=== PATIENT | male | born 1950 | race Caucasian/White ===

== ENCOUNTER → 2017-10-21 | Outpatient (CLI) | payer MEDICARE ==
[~2017-10-21] MED LIST: BARIUM SULFATE 60% 355 ML SUSP PO ONE; SIMETHICONE/SOD BICARB/CITRIC ACID PACKET. PO ONE
--- NOTE | 2017-10-21 10:50 | RAD ---
Esophagram Indication: Nausea and vomiting Technique: Fluoroscopy-guided Esophagram and upper GI study was performed with thin and thick barium. Multiple fluoroscopy and spot images were taken in multiple projections. Total fluoroscopy time of 5.4 minutes. Comparison: None Findings: The esophagram demonstrated no evidence of aspiration. Small amount of post swallow residual seen in the vallecula. No evidence of esophageal diverticulum. No obstructing mass or stricture in the esophagus. No hiatal hernia. The stomach demonstrates no intraluminal filling defects. No large ulcers visualized. Prompt opacification of the duodenum and proximal bowel loops was seen. No sec. gastric rugae. No significant evidence of gastroesophageal reflux. Impression: 1. No aspiration. 2. No esophageal diverticulum, esophageal mass or stricture. 3. No evidence of gastric outlet obstruction. No intraluminal gastric mass or large ulcers. Consider EGD for further evaluation if clinically indicated.
== END | disposition home or self-care (01) ==
LOC: RAD 08:56
PROVIDERS: ATTEND Internal Medicine Gastroenterology
DX: R11.2 Nausea with vomiting, unspecified (principal)
CPT/HCPCS: 74246

== ENCOUNTER 2017-12-21 13:11 | Emergency (ER) | payer MEDICARE, OTHER ==
[2017-12-21] MEDS ORDERED: CONTRAST GIVEN MC ×2 (14:15)
[2017-12-21] MEDS ORDERED: IOHEXOL 240 MG/ML 50ML VIAL. IT ×2 (14:15)
== END 2017-12-21 15:53 | disposition home or self-care (01) ==
LOC: ER 13:11
DX: K94.23 Gastrostomy malfunction (principal); Y83.3 Surgical operation with formation of external stoma as the cause of abnormal reaction of the patient, or of later complication, without mention of misadventure at the time of the procedure
CPT/HCPCS: 71045; 74018; 99284

== ENCOUNTER 2017-12-24 23:40 | Emergency (ER) | payer MEDICARE, OTHER, MEDICAID ==
[2017-12-25 00:03] LABS: ADD MAN DIFF? NO
[2017-12-25 00:05] LABS: BASO % 1 % (0-3); EOS % 0 % (0-3); HEMATOCRIT 35.9 % (39.0-53.0); HEMOGLOBIN 12.2 g/dL (13.0-17.5); LYMPH # 1.6 x10^3/uL (1.0-4.8); LYMPH % 26 % (24-48); MEAN CORPUSCULAR HEMOGLOBIN 30 pg (25-35); MEAN CORPUSCULAR HGB CONC 34 g/dL (31-37); MEAN CORPUSCULAR VOLUME 89 fL (79-100); MONO # 0.5 x10^3/uL (0.0-1.1); MONO % 8 % (0-9); NEUT # 4.1 x10^3uL (1.8-7.7); NEUT % 65 % (31-73); PLATELET COUNT 160 x10^3/uL (140-400); RED BLOOD COUNT 4.06 x10^6/uL (4.30-5.70); RED CELL DISTRIBUTION WIDTH 14.8 % (11.5-14.5); WHITE BLOOD COUNT 6.3 x10^3/uL (4.0-11.0)
[2017-12-25] MEDS: IPRATRPIUM/ALBUTEROL 0.5/2.5MG 3 ML NEBU. NEB ×2 (00:06)
[2017-12-25] MEDS: IV NORMAL SALINE 1000ML BAG 1,000 ML IV ×2 (00:09)
[2017-12-25 00:25] LABS: ANION GAP 3 (6-14); BLOOD UREA NITROGEN 25 mg/dL (8-26); BUN/CREATININE RATIO 21 (6-20); CALCIUM 7.9 mg/dL (8.5-10.1); CARBON DIOXIDE 30 mmol/L (21-32); CHLORIDE 95 mmol/L (98-107); CREATININE 1.2 mg/dL (0.7-1.3); GFR 60.8; GLUCOSE 112 mg/dL (70-99); POTASSIUM 4.4 mmol/L (3.5-5.1); SODIUM 128 mmol/L (136-145)
[2017-12-25 00:28] LABS: D-DIMER 0.45 ug/mlFEU (0.00-0.50)
[2017-12-25 00:31] LABS: ALBUMIN/GLOBULIN RATIO 0.5 (1.0-1.7); ALK PHOS 74 U/L (46-116); ALT (SGPT) 27 U/L (16-63); AST (SGOT) 23 U/L (15-37); TOTAL BILIRUBIN 0.6 mg/dL (0.2-1.0); TOTAL PROTEIN 5.9 g/dL (6.4-8.2)
[2017-12-25 00:33] LABS: LACTIC ACID 1.7 mmol/L (0.4-2.0)
[2017-12-25 00:36] LABS: TROPONINI < 0.017 ng/mL (0.000-0.055)
[2017-12-25 00:38] LABS: NT-PRO BNP 278 pg/mL (0-124)
[2017-12-25 00:41] LABS: CREATINE KINASE 72 U/L (39-308)
[2017-12-25 00:42] LABS: CKMB MASS 2.6 ng/mL (0.0-3.6)
[2017-12-25 01:01] LABS: BILIRUBIN,URINE NEGATIVE (NEG); CLARITY,URINE CLEAR; COLOR,URINE YELLOW; GLUCOSE,URINE NEGATIVE (NEG); NITRITE,URINE NEGATIVE (NEG); PH,URINE 7.5; PROTEIN,URINE NEGATIVE (NEG-TRACE)
[2017-12-25 01:43] LABS: BACTERIA,URINE 0 /HPF (0-FEW); SQUAMOUS EPITHELIAL CELL,UR FEW /LPF
== END 2017-12-25 02:34 | disposition home or self-care (01) ==
LOC: ER 23:40
DX: R06.00 Dyspnea, unspecified (principal); E11.9 Type 2 diabetes mellitus without complications; Z86.73 Personal history of transient ischemic attack (TIA), and cerebral infarction without residual deficits; I51.9 Heart disease, unspecified; Z95.1 Presence of aortocoronary bypass graft
CPT/HCPCS: 36415; 51701; 71045; 80053; 81001; 82553; 83605; 83880; 84484; 85025; 85379; 93005; 94640; 96360; 99285-25; J7030; J7620

== ENCOUNTER 2017-12-28 20:41 | Inpatient (IN) | payer MEDICARE, OTHER ==
[2017-12-28 21:35] LABS: ADD MAN DIFF? NO
[2017-12-28 21:39] LABS: BASO % 0 % (0-3); EOS % 0 % (0-3); HEMATOCRIT 38.9 % (39.0-53.0); HEMOGLOBIN 13.1 g/dL (13.0-17.5); LYMPH # 1.4 x10^3/uL (1.0-4.8); LYMPH % 14 % (24-48); MEAN CORPUSCULAR HEMOGLOBIN 30 pg (25-35); MEAN CORPUSCULAR HGB CONC 34 g/dL (31-37); MEAN CORPUSCULAR VOLUME 89 fL (79-100); MONO # 0.6 x10^3/uL (0.0-1.1); MONO % 6 % (0-9); NEUT # 8.1 x10^3uL (1.8-7.7); NEUT % 80 % (31-73); PLATELET COUNT 149 x10^3/uL (140-400); RED BLOOD COUNT 4.38 x10^6/uL (4.30-5.70); RED CELL DISTRIBUTION WIDTH 15.2 % (11.5-14.5); WHITE BLOOD COUNT 10.2 x10^3/uL (4.0-11.0)
[2017-12-28 21:54] LABS: ANION GAP 8 (6-14); BLOOD UREA NITROGEN 25 mg/dL (8-26); BUN/CREATININE RATIO 19 (6-20); CALCIUM 8.4 mg/dL (8.5-10.1); CARBON DIOXIDE 26 mmol/L (21-32); CHLORIDE 92 mmol/L (98-107); CREATININE 1.3 mg/dL (0.7-1.3); GFR 55.4; GLUCOSE 261 mg/dL (70-99); POTASSIUM 4.8 mmol/L (3.5-5.1); SODIUM 126 mmol/L (136-145)
[2017-12-28 22:00] LABS: LACTIC ACID 2.5 mmol/L (0.4-2.0)
[2017-12-28 22:02] LABS: TROPONINI < 0.017 ng/mL (0.000-0.055)
[2017-12-28 22:05] LABS: NT-PRO BNP 1199 pg/mL (0-124)
[2017-12-28 22:07] LABS: ALBUMIN 2.2 g/dL (3.4-5.0); ALBUMIN/GLOBULIN RATIO 0.5 (1.0-1.7); ALK PHOS 105 U/L (46-116); ALT (SGPT) 34 U/L (16-63); AST (SGOT) 35 U/L (15-37); TOTAL BILIRUBIN 0.8 mg/dL (0.2-1.0); TOTAL PROTEIN 6.6 g/dL (6.4-8.2)
[2017-12-28 22:12] LABS: INFLUENZA A PATIENT NEGATIVE (NEGATIVE); INFLUENZA B PATIENT NEGATIVE (NEGATIVE); OBC FLU VALID
[2017-12-28] MEDS: IPRATRPIUM/ALBUTEROL 0.5/2.5MG 3 ML NEBU. NEB (22:22)
[2017-12-28 22:40] LABS: BASE EXCESS ABG 3 mmol/L (-3-3); HCO3 ABG 25 mmol/L (21-28); PCO2 ABG 31 mmHg (35-46); PH ABG 7.52 (7.35-7.45); PO2 ABG 59 mmHg (65-108); SAT O2 ABG 91 % (92-99)
[2017-12-28 22:41] LABS: FIO2 ABG 50
[2017-12-28] MEDS ORDERED: CEFEPIME HCL 2 GM in IV NORMAL SALINE 100ML 100 ML IV (22:45)
[2017-12-28] MEDS ORDERED: ONDANSETRON PF 4 MG/2 ML VIAL. IV (22:45)
[2017-12-28] MEDS ORDERED: IV NORMAL SALINE 500ML BAG 500 ML IV (23:00)
[2017-12-29] MEDS ORDERED: VANCOMYCIN IV
[2017-12-29] MEDS ORDERED: DEXTROSE IV
[2017-12-29] MEDS ORDERED: NACL IV
[2017-12-29] MEDS: CEFEPIME HCL IV Push 2 GM VIAL. IVP (00:28)
[2017-12-29] MEDS: VANCOMYCIN 2 GM in IV DEXTROSE 5 %-0.2 % NACL 500 ML IV (00:29)
[2017-12-29] MEDS: methylPREDNISolone SOD SUCC PF 125 MG/2 ML VIAL. IV (00:30)
[2017-12-29] MEDS: VANCOMYCIN PER PHARMACY MC ×2 (01:43→09:16)
[2017-12-29 02:35] LABS: LACTIC ACID 1.3 mmol/L (0.4-2.0)
[2017-12-29 05:14] LABS: ADD MAN DIFF? NO
[2017-12-29 05:37] LABS: BASO # 0.1 x10^3/uL (0.0-0.2); BASO % 1 % (0-3); EOS % 0 % (0-3); HEMOGLOBIN 11.4 g/dL (13.0-17.5); LYMPH # 1.7 x10^3/uL (1.0-4.8); LYMPH % 23 % (24-48); MEAN CORPUSCULAR HEMOGLOBIN 31 pg (25-35); MEAN CORPUSCULAR HGB CONC 35 g/dL (31-37); MEAN CORPUSCULAR VOLUME 89 fL (79-100); MONO # 0.6 x10^3/uL (0.0-1.1); MONO % 8 % (0-9); NEUT # 5.1 x10^3uL (1.8-7.7); NEUT % 68 % (31-73); PLATELET COUNT 117 x10^3/uL (140-400); RED BLOOD COUNT 3.72 x10^6/uL (4.30-5.70); RED CELL DISTRIBUTION WIDTH 15.3 % (11.5-14.5); WHITE BLOOD COUNT 7.4 x10^3/uL (4.0-11.0)
[2017-12-29 06:01] LABS: ANION GAP 5 (6-14); BLOOD UREA NITROGEN 30 mg/dL (8-26); CALCIUM 8.4 mg/dL (8.5-10.1); CARBON DIOXIDE 27 mmol/L (21-32); CHLORIDE 94 mmol/L (98-107); CREATININE 1.2 mg/dL (0.7-1.3); GFR 60.8; GLUCOSE 244 mg/dL (70-99); POTASSIUM 4.4 mmol/L (3.5-5.1); SODIUM 126 mmol/L (136-145)
[2017-12-29 06:10] LABS: TROPONINI < 0.017 ng/mL (0.000-0.055)
[2017-12-29 08:21] LABS: POC GLUCOSE 271 mg/dL (70-99)
[2017-12-29] MEDS ORDERED: BISACODYL 10 MG SUPP.RECT. RC (09:00)
[2017-12-29] MEDS ORDERED: SODIUM PHOSPHATES 19/7GM 133 ML ENEMA. RC (09:00)
[2017-12-29] MEDS: ASPIRIN ENTERIC COATED 81 MG TABLET.DR. PO (09:23)
[2017-12-29] MEDS: CETIRIZINE HCL 10 MG TABLET. PO (09:23)
[2017-12-29] MEDS: PANTOPRAZOLE 40 MG TABLET.DR. PO (09:23)
[2017-12-29] MEDS: FOLIC ACID 1 MG TABLET. PO (09:23)
[2017-12-29] MEDS: MULTIVITAMIN with MINERAL TABLET. PO (09:23)
[2017-12-29] MEDS: MAGNESIUM OXIDE 400 MG TABLET PO ×3 (09:23→21:39)
[2017-12-29] MEDS: buPROPion SR 100 MG TABLET.SA. PO ×2 (09:23→21:38)
[2017-12-29] MEDS: CLOPIDOGREL BISULFATE 75 MG TABLET PO (09:23)
[2017-12-29] MEDS: CEFEPIME HCL IV Push 1 GM VIAL. IVP ×3 (09:24→21:39)
[2017-12-29] MEDS: IV NORMAL SALINE 1000ML BAG 1,000 ML IV (11:30)
[2017-12-29 11:43] LABS: TROPONINI < 0.017 ng/mL (0.000-0.055)
[2017-12-29] MEDS: LEVOTHYROXINE 175 MCG TABLET PO (11:58)
[2017-12-29] MEDS ORDERED: INSULIN ASPART 300 UNITS/3 ML INSULN.PEN SQ (12:00)
[2017-12-29] MEDS: INSULIN ASPART 300 UNITS/3 ML INSULN.PEN SQ ×3 (12:05→23:53)
[2017-12-29 12:12] LABS: POC GLUCOSE 223 mg/dL (70-99)
[2017-12-29] MEDS: VANCOMYCIN 1.25 GM in IV DEXTROSE 5 %-0.45 % NACL 500 ML IV (12:46)
[2017-12-29 13:57] LABS: URIC ACID 5.1 mg/dL (3.5-7.2)
[2017-12-29 14:09] LABS: THYROID STIM HORMONE (TSH) 5.933 uIU/mL (0.358-3.74)
[2017-12-29 14:09] LABS: FREE T4 1.16 ng/dL (0.76-1.46)
[2017-12-29] MEDS: HEPARIN PF for SUB-Q USE 5,000 UNIT/0.5 ML VIAL. SQ ×2 (14:26→21:41)
[2017-12-29] MEDS: methylPREDNISolone SOD SUCC PF 40 MG/ML VIAL. IV (14:28)
[2017-12-29] MEDS ORDERED: CONTRAST GIVEN MC (15:45)
[2017-12-29] MEDS: IOHEXOL 300 MG/ML 100ML VIAL. IV (15:45)
[2017-12-29] MEDS: ATORVASTATIN CALCIUM 20 MG TABLET PO (21:38)
[2017-12-29] MEDS: LACTOBACILLUS RHAMNOSUS GG 1 CAPSULE. PO (21:40)
[2017-12-29 23:08] LABS: MRSA BY PCR Positive (Negative)
[2017-12-29 23:55] LABS: POC GLUCOSE 158 mg/dL (70-99)
[2017-12-30] MEDS: VANCOMYCIN 1.25 GM in IV DEXTROSE 5 %-0.45 % NACL 500 ML IV ×2 (00:40→12:43)
[2017-12-30 01:16] LABS: POC GLUCOSE 223 mg/dL (70-99)
[2017-12-30 05:21] LABS: ADD MAN DIFF? NO
[2017-12-30 05:35] LABS: BASO % 0 % (0-3); EOS % 0 % (0-3); HEMATOCRIT 33.2 % (39.0-53.0); HEMOGLOBIN 11.1 g/dL (13.0-17.5); LYMPH # 0.6 x10^3/uL (1.0-4.8); LYMPH % 14 % (24-48); MEAN CORPUSCULAR HEMOGLOBIN 30 pg (25-35); MEAN CORPUSCULAR HGB CONC 34 g/dL (31-37); MEAN CORPUSCULAR VOLUME 89 fL (79-100); MONO # 0.3 x10^3/uL (0.0-1.1); MONO % 8 % (0-9); NEUT # 3.4 x10^3uL (1.8-7.7); NEUT % 78 % (31-73); PLATELET COUNT 107 x10^3/uL (140-400); RED BLOOD COUNT 3.74 x10^6/uL (4.30-5.70); RED CELL DISTRIBUTION WIDTH 15.4 % (11.5-14.5); WHITE BLOOD COUNT 4.4 x10^3/uL (4.0-11.0)
[2017-12-30] MEDS: IV NORMAL SALINE 1000ML BAG 1,000 ML IV (06:06)
[2017-12-30 06:08] LABS: ALBUMIN 1.8 g/dL (3.4-5.0); ALBUMIN/GLOBULIN RATIO 0.5 (1.0-1.7); ALK PHOS 72 U/L (46-116); ALT (SGPT) 27 U/L (16-63); ANION GAP 5 (6-14); AST (SGOT) 26 U/L (15-37); BLOOD UREA NITROGEN 22 mg/dL (8-26); BUN/CREATININE RATIO 24 (6-20); CARBON DIOXIDE 29 mmol/L (21-32); CHLORIDE 97 mmol/L (98-107); CREATININE 0.9 mg/dL (0.7-1.3); GFR 84.7; GLUCOSE 242 mg/dL (70-99); POTASSIUM 3.7 mmol/L (3.5-5.1); SODIUM 131 mmol/L (136-145); TOTAL BILIRUBIN 0.5 mg/dL (0.2-1.0); TOTAL PROTEIN 5.7 g/dL (6.4-8.2)
[2017-12-30] MEDS: CEFEPIME HCL IV Push 1 GM VIAL. IVP ×3 (06:31→22:00)
[2017-12-30] MEDS: LEVOTHYROXINE 175 MCG TABLET PO ×2 (06:31→07:34)
[2017-12-30] MEDS: HEPARIN PF for SUB-Q USE 5,000 UNIT/0.5 ML VIAL. SQ ×2 (06:35→15:12)
[2017-12-30] MEDS: INSULIN ASPART 300 UNITS/3 ML INSULN.PEN SQ ×4 (06:36→23:29)
[2017-12-30 06:45] LABS: POC GLUCOSE 213 mg/dL (70-99)
[2017-12-30] MEDS: POLYETHYLENE GLYCOL 3350 17 GM PACKET. PO (07:33)
[2017-12-30] MEDS: buPROPion SR 100 MG TABLET.SA. PO ×2 (07:34→20:38)
[2017-12-30] MEDS: PANTOPRAZOLE 40 MG TABLET.DR. PO (07:34)
[2017-12-30] MEDS: FOLIC ACID 1 MG TABLET. PO (07:34)
[2017-12-30] MEDS: MULTIVITAMIN with MINERAL TABLET. PO (07:34)
[2017-12-30] MEDS: CLOPIDOGREL BISULFATE 75 MG TABLET PO (07:34)
[2017-12-30] MEDS: CETIRIZINE HCL 10 MG TABLET. PO (07:34)
[2017-12-30] MEDS: ASPIRIN ENTERIC COATED 81 MG TABLET.DR. PO (07:34)
[2017-12-30] MEDS: MAGNESIUM OXIDE 400 MG TABLET PO ×3 (07:34→20:38)
[2017-12-30] MEDS: LACTOBACILLUS RHAMNOSUS GG 1 CAPSULE. PO ×2 (07:35→20:37)
[2017-12-30] MEDS: methylPREDNISolone SOD SUCC PF 40 MG/ML VIAL. IV ×2 (07:35→15:09)
[2017-12-30] MEDS: ASCORBIC ACID 500 MG TABLET PO (12:42)
[2017-12-30 12:49] LABS: POC GLUCOSE 206 mg/dL (70-99)
[2017-12-30 12:57] LABS: VANC TR 20.7 mcg/mL (10.0-20.0)
[2017-12-30] MEDS: VANCOMYCIN PER PHARMACY MC ×2 (15:07→15:10)
[2017-12-30] MEDS: IPRATRPIUM/ALBUTEROL 0.5/2.5MG 3 ML NEBU. NEB ×2 (16:15→20:38)
[2017-12-30 17:35] LABS: POC GLUCOSE 219 mg/dL (70-99)
[2017-12-30] MEDS: ATORVASTATIN CALCIUM 20 MG TABLET PO (20:37)
[2017-12-30 22:40] LABS: POC GLUCOSE 201 mg/dL (70-99)
[2017-12-31] MEDS: VANCOMYCIN 1 GM in IV NORMAL SALINE 250ML 250 ML IV ×2 (00:38→12:55)
[2017-12-31] MEDS: HEPARIN PF for SUB-Q USE 5,000 UNIT/0.5 ML VIAL. SQ ×4 (00:39→22:30)
[2017-12-31] MEDS ORDERED: VANCOMYCIN 1 GM in IV NORMAL SALINE 250ML 250 ML IV (01:00)
[2017-12-31] MEDS: IV NORMAL SALINE 1000ML BAG 1,000 ML IV ×2 (03:30→22:23)
[2017-12-31 05:42] LABS: ADD MAN DIFF? NO
[2017-12-31 05:53] LABS: BASO % 0 % (0-3); EOS % 0 % (0-3); HEMATOCRIT 38.7 % (39.0-53.0); HEMOGLOBIN 12.7 g/dL (13.0-17.5); LYMPH # 0.6 x10^3/uL (1.0-4.8); LYMPH % 13 % (24-48); MEAN CORPUSCULAR HEMOGLOBIN 30 pg (25-35); MEAN CORPUSCULAR HGB CONC 33 g/dL (31-37); MEAN CORPUSCULAR VOLUME 90 fL (79-100); MONO # 0.3 x10^3/uL (0.0-1.1); MONO % 6 % (0-9); NEUT # 3.8 x10^3uL (1.8-7.7); NEUT % 80 % (31-73); PLATELET COUNT 108 x10^3/uL (140-400); RED BLOOD COUNT 4.29 x10^6/uL (4.30-5.70); RED CELL DISTRIBUTION WIDTH 15.8 % (11.5-14.5); WHITE BLOOD COUNT 4.8 x10^3/uL (4.0-11.0)
[2017-12-31] MEDS: INSULIN ASPART 300 UNITS/3 ML INSULN.PEN SQ ×3 (06:00→18:44)
[2017-12-31] MEDS: CEFEPIME HCL IV Push 1 GM VIAL. IVP ×3 (06:00→22:23)
[2017-12-31 06:31] LABS: ALBUMIN 2.3 g/dL (3.4-5.0); ALBUMIN/GLOBULIN RATIO 0.5 (1.0-1.7); ALK PHOS 82 U/L (46-116); ALT (SGPT) 48 U/L (16-63); ANION GAP 6 (6-14); AST (SGOT) 31 U/L (15-37); BLOOD UREA NITROGEN 23 mg/dL (8-26); BUN/CREATININE RATIO 26 (6-20); CALCIUM 8.2 mg/dL (8.5-10.1); CARBON DIOXIDE 29 mmol/L (21-32); CHLORIDE 98 mmol/L (98-107); CREATININE 0.9 mg/dL (0.7-1.3); GFR 84.7; GLUCOSE 204 mg/dL (70-99); POTASSIUM 3.9 mmol/L (3.5-5.1); SODIUM 133 mmol/L (136-145); TOTAL BILIRUBIN 0.5 mg/dL (0.2-1.0); TOTAL PROTEIN 6.9 g/dL (6.4-8.2)
[2017-12-31 06:54] LABS: POC GLUCOSE 161 mg/dL (70-99)
[2017-12-31] MEDS: IPRATRPIUM/ALBUTEROL 0.5/2.5MG 3 ML NEBU. NEB ×4 (07:15→20:04)
[2017-12-31] MEDS: PANTOPRAZOLE 40 MG TABLET.DR. PO (07:30)
[2017-12-31] MEDS: buPROPion SR 100 MG TABLET.SA. PO ×2 (09:00→21:00)
[2017-12-31] MEDS: MAGNESIUM OXIDE 400 MG TABLET PO ×3 (09:00→21:00)
[2017-12-31] MEDS: LACTOBACILLUS RHAMNOSUS GG 1 CAPSULE. PO ×2 (09:00→21:00)
[2017-12-31] MEDS: MULTIVITAMIN with MINERAL TABLET. PO (09:00)
[2017-12-31] MEDS: ASCORBIC ACID 500 MG TABLET PO (09:00)
[2017-12-31] MEDS: CLOPIDOGREL BISULFATE 75 MG TABLET PO (09:00)
[2017-12-31] MEDS: FOLIC ACID 1 MG TABLET. PO (09:00)
[2017-12-31] MEDS: ASPIRIN ENTERIC COATED 81 MG TABLET.DR. PO (09:00)
[2017-12-31] MEDS: CETIRIZINE HCL 10 MG TABLET. PO (09:00)
[2017-12-31] MEDS: methylPREDNISolone SOD SUCC PF 40 MG/ML VIAL. IV ×2 (09:43→15:01)
[2017-12-31] MEDS: VANCOMYCIN PER PHARMACY MC (10:55)
[2017-12-31 12:16] LABS: URINE OSMOLALITY 866 mOsmol/kg (.)
[2017-12-31 12:38] LABS: POC GLUCOSE 159 mg/dL (70-99)
[2017-12-31 18:30] LABS: POC GLUCOSE 214 mg/dL (70-99)
[2017-12-31] MEDS: ATORVASTATIN CALCIUM 20 MG TABLET PO (21:00)
[2017-12-31 23:33] LABS: BILIRUBIN,URINE NEGATIVE (NEG); CLARITY,URINE CLEAR; COLOR,URINE AMBER; GLUCOSE,URINE NEGATIVE (NEG); NITRITE,URINE NEGATIVE (NEG); PROTEIN,URINE 30 mg/dL (NEG-TRACE)
[2017-12-31 23:45] LABS: BACTERIA,URINE 0 /HPF (0-FEW); RBC,URINE TNTC /HPF (0-2)
[2018-01-01 00:39] LABS: POC GLUCOSE 195 mg/dL (70-99)
[2018-01-01] MEDS: VANCOMYCIN 1 GM in IV NORMAL SALINE 250ML 250 ML IV ×2 (00:43→14:25)
[2018-01-01 01:11] LABS: HCV ANTIBODY >11.0 s/co ratio (0.0-0.9); HEP A IGM ABDY Negative (Negative); HEP B SURFACE AG Negative (Negative)
[2018-01-01] MEDS: IV NORMAL SALINE 500ML BAG 500 ML IV (03:00)
[2018-01-01] MEDS: IV NORMAL SALINE 1000ML BAG 1,000 ML IV ×3 (03:04→22:13)
[2018-01-01 05:00] LABS: ADD MAN DIFF? NO
[2018-01-01 05:09] LABS: POC GLUCOSE 179 mg/dL (70-99)
[2018-01-01 05:15] LABS: BASO % 0 % (0-3); EOS % 0 % (0-3); HEMATOCRIT 32.1 % (39.0-53.0); HEMOGLOBIN 10.5 g/dL (13.0-17.5); LYMPH # 0.5 x10^3/uL (1.0-4.8); LYMPH % 11 % (24-48); MEAN CORPUSCULAR HEMOGLOBIN 30 pg (25-35); MEAN CORPUSCULAR HGB CONC 33 g/dL (31-37); MEAN CORPUSCULAR VOLUME 90 fL (79-100); MONO # 0.3 x10^3/uL (0.0-1.1); MONO % 7 % (0-9); NEUT # 3.6 x10^3uL (1.8-7.7); NEUT % 81 % (31-73); PLATELET COUNT 99 x10^3/uL (140-400); RED BLOOD COUNT 3.57 x10^6/uL (4.30-5.70); RED CELL DISTRIBUTION WIDTH 15.2 % (11.5-14.5); WHITE BLOOD COUNT 4.4 x10^3/uL (4.0-11.0)
[2018-01-01] MEDS: INSULIN ASPART 300 UNITS/3 ML INSULN.PEN SQ ×4 (05:16→18:00)
[2018-01-01] MEDS: LEVOTHYROXINE 175 MCG TABLET PO (05:17)
[2018-01-01] MEDS: PANTOPRAZOLE 40 MG TABLET.DR. PO (05:17)
[2018-01-01] MEDS: HEPARIN PF for SUB-Q USE 5,000 UNIT/0.5 ML VIAL. SQ ×3 (06:00→22:00)
[2018-01-01 06:01] LABS: ALBUMIN 1.9 g/dL (3.4-5.0); ALBUMIN/GLOBULIN RATIO 0.5 (1.0-1.7); ALK PHOS 64 U/L (46-116); ALT (SGPT) 31 U/L (16-63); ANION GAP 9 (6-14); AST (SGOT) 20 U/L (15-37); BLOOD UREA NITROGEN 20 mg/dL (8-26); BUN/CREATININE RATIO 25 (6-20); CALCIUM 7.6 mg/dL (8.5-10.1); CARBON DIOXIDE 26 mmol/L (21-32); CHLORIDE 101 mmol/L (98-107); CREATININE 0.8 mg/dL (0.7-1.3); GLUCOSE 181 mg/dL (70-99); POTASSIUM 3.8 mmol/L (3.5-5.1); SODIUM 136 mmol/L (136-145); TOTAL BILIRUBIN 0.5 mg/dL (0.2-1.0); TOTAL PROTEIN 5.4 g/dL (6.4-8.2)
[2018-01-01] MEDS: CEFEPIME HCL IV Push 1 GM VIAL. IVP (06:25)
[2018-01-01] MEDS: IPRATRPIUM/ALBUTEROL 0.5/2.5MG 3 ML NEBU. NEB ×4 (07:55→20:00)
[2018-01-01] MEDS: CLOPIDOGREL BISULFATE 75 MG TABLET PO (09:00)
[2018-01-01] MEDS: ASCORBIC ACID 500 MG TABLET PO (09:00)
[2018-01-01] MEDS: methylPREDNISolone SOD SUCC PF 40 MG/ML VIAL. IV ×2 (09:00→14:22)
[2018-01-01] MEDS: CETIRIZINE HCL 10 MG TABLET. PO (09:00)
[2018-01-01] MEDS: buPROPion SR 100 MG TABLET.SA. PO ×2 (09:00→22:12)
[2018-01-01] MEDS: MULTIVITAMIN with MINERAL TABLET. PO (09:00)
[2018-01-01] MEDS: LACTOBACILLUS RHAMNOSUS GG 1 CAPSULE. PO ×2 (09:00→22:12)
[2018-01-01] MEDS: FOLIC ACID 1 MG TABLET. PO (09:00)
[2018-01-01] MEDS: ASPIRIN ENTERIC COATED 81 MG TABLET.DR. PO (09:00)
[2018-01-01] MEDS: MAGNESIUM OXIDE 400 MG TABLET PO ×3 (09:00→22:12)
[2018-01-01] MEDS: IOHEXOL 300 MG/ML 100ML VIAL. PO (10:45)
[2018-01-01] MEDS ORDERED: CONTRAST GIVEN MC (11:00)
[2018-01-01] MEDS: VANCOMYCIN PER PHARMACY MC ×2 (11:59→17:12)
[2018-01-01 12:50] LABS: POC GLUCOSE 146 mg/dL (70-99)
[2018-01-01] MEDS: ATORVASTATIN CALCIUM 20 MG TABLET PO (22:12)
[2018-01-02] MEDS: INSULIN ASPART 300 UNITS/3 ML INSULN.PEN SQ ×6 (00:40→19:02)
[2018-01-02] MEDS: VANCOMYCIN 1 GM in IV NORMAL SALINE 250ML 250 ML IV ×2 (00:46→13:26)
[2018-01-02] MEDS: PANTOPRAZOLE 40 MG TABLET.DR. PO (05:41)
[2018-01-02] MEDS: LEVOTHYROXINE 175 MCG TABLET PO (05:41)
[2018-01-02] MEDS: HEPARIN PF for SUB-Q USE 5,000 UNIT/0.5 ML VIAL. SQ ×3 (05:42→20:48)
[2018-01-02 07:00] LABS: ADD MAN DIFF? NO
[2018-01-02 07:18] LABS: BASO % 0 % (0-3); EOS % 0 % (0-3); HEMATOCRIT 39.3 % (39.0-53.0); HEMOGLOBIN 13.1 g/dL (13.0-17.5); LYMPH # 0.8 x10^3/uL (1.0-4.8); LYMPH % 11 % (24-48); MEAN CORPUSCULAR HEMOGLOBIN 30 pg (25-35); MEAN CORPUSCULAR HGB CONC 33 g/dL (31-37); MEAN CORPUSCULAR VOLUME 91 fL (79-100); MONO # 0.4 x10^3/uL (0.0-1.1); MONO % 6 % (0-9); NEUT # 5.9 x10^3uL (1.8-7.7); NEUT % 83 % (31-73); PLATELET COUNT 98 x10^3/uL (140-400); RED BLOOD COUNT 4.33 x10^6/uL (4.30-5.70); RED CELL DISTRIBUTION WIDTH 15.4 % (11.5-14.5); WHITE BLOOD COUNT 7.1 x10^3/uL (4.0-11.0)
[2018-01-02 07:27] LABS: ALBUMIN 1.7 g/dL (3.4-5.0); ALBUMIN/GLOBULIN RATIO 0.4 (1.0-1.7); ALK PHOS 72 U/L (46-116); ALT (SGPT) 36 U/L (16-63); ANION GAP 5 (6-14); AST (SGOT) 25 U/L (15-37); BLOOD UREA NITROGEN 15 mg/dL (8-26); BUN/CREATININE RATIO 21 (6-20); CALCIUM 7.3 mg/dL (8.5-10.1); CARBON DIOXIDE 26 mmol/L (21-32); CHLORIDE 101 mmol/L (98-107); CREATININE 0.7 mg/dL (0.7-1.3); GFR 113.2; GLUCOSE 207 mg/dL (70-99); POTASSIUM 3.4 mmol/L (3.5-5.1); SODIUM 132 mmol/L (136-145); TOTAL BILIRUBIN 0.5 mg/dL (0.2-1.0); TOTAL PROTEIN 5.9 g/dL (6.4-8.2)
[2018-01-02] MEDS: IPRATRPIUM/ALBUTEROL 0.5/2.5MG 3 ML NEBU. NEB ×4 (07:36→19:27)
[2018-01-02] MEDS: IV NORMAL SALINE 1000ML BAG 1,000 ML IV ×3 (08:07→18:51)
[2018-01-02] MEDS: methylPREDNISolone SOD SUCC PF 40 MG/ML VIAL. IV ×2 (08:07→14:14)
[2018-01-02] MEDS: LACTOBACILLUS RHAMNOSUS GG 1 CAPSULE. PO (08:12)
[2018-01-02] MEDS: ASCORBIC ACID 500 MG TABLET PO (08:13)
[2018-01-02] MEDS: FOLIC ACID 1 MG TABLET. PO (08:13)
[2018-01-02] MEDS: ASPIRIN ENTERIC COATED 81 MG TABLET.DR. PO (08:13)
[2018-01-02] MEDS: MULTIVITAMIN with MINERAL TABLET. PO (08:13)
[2018-01-02] MEDS: POTASSIUM CHLORIDE 20 MEQ/15 ML ORAL LIQUID. PEG (09:08)
[2018-01-02] MEDS: CETIRIZINE HCL 10 MG TABLET. PO (09:08)
[2018-01-02] MEDS: MAGNESIUM OXIDE 400 MG TABLET PO ×3 (09:08→20:44)
[2018-01-02] MEDS: buPROPion 100 MG TABLET PO ×2 (09:08→20:43)
[2018-01-02] MEDS: CLOPIDOGREL BISULFATE 75 MG TABLET PO (09:08)
[2018-01-02] MEDS: VANCOMYCIN PER PHARMACY MC ×3 (10:53→15:35)
[2018-01-02 13:11] LABS: VANC TR 19.5 mcg/mL (10.0-20.0)
[2018-01-02 18:47] LABS: POC GLUCOSE 203 mg/dL (70-99)
[2018-01-02 18:47] LABS: POC GLUCOSE 201 mg/dL (70-99)
[2018-01-02 18:47] LABS: POC GLUCOSE 179 mg/dL (70-99)
[2018-01-02 18:47] LABS: POC GLUCOSE 172 mg/dL (70-99)
[2018-01-02 18:47] LABS: POC GLUCOSE 228 mg/dL (70-99)
[2018-01-02 18:49] LABS: POC GLUCOSE 240 mg/dL (70-99)
[2018-01-02] MEDS: METOCLOPRAMIDE ORAL SOLN 10 MG/10 ML SOLUTION. FT ×2 (18:51→21:00)
[2018-01-02] MEDS: ATORVASTATIN CALCIUM 20 MG TABLET PO (20:43)
[2018-01-02 21:07] LABS: POC GLUCOSE 190 mg/dL (70-99)
[2018-01-03] MEDS: VANCOMYCIN 1 GM in IV NORMAL SALINE 250ML 250 ML IV ×2 (00:49→14:05)
[2018-01-03] MEDS: IV NORMAL SALINE 1000ML BAG 1,000 ML IV (04:45)
[2018-01-03] MEDS: PANTOPRAZOLE 40 MG TABLET.DR. PO (05:56)
[2018-01-03] MEDS: LEVOTHYROXINE 175 MCG TABLET PO (05:56)
[2018-01-03 06:18] LABS: ALBUMIN 1.9 g/dL (3.4-5.0); ALBUMIN/GLOBULIN RATIO 0.6 (1.0-1.7); ALK PHOS 59 U/L (46-116); ALT (SGPT) 33 U/L (16-63); ANION GAP 5 (6-14); AST (SGOT) 17 U/L (15-37); BLOOD UREA NITROGEN 14 mg/dL (8-26); BUN/CREATININE RATIO 20 (6-20); CARBON DIOXIDE 31 mmol/L (21-32); CHLORIDE 100 mmol/L (98-107); CREATININE 0.7 mg/dL (0.7-1.3); GFR 113.2; GLUCOSE 196 mg/dL (70-99); POTASSIUM 3.5 mmol/L (3.5-5.1); SODIUM 136 mmol/L (136-145); TOTAL BILIRUBIN 0.5 mg/dL (0.2-1.0); TOTAL PROTEIN 4.9 g/dL (6.4-8.2)
[2018-01-03] MEDS: HEPARIN PF for SUB-Q USE 5,000 UNIT/0.5 ML VIAL. SQ ×3 (06:43→20:28)
[2018-01-03] MEDS: IPRATRPIUM/ALBUTEROL 0.5/2.5MG 3 ML NEBU. NEB ×4 (07:07→20:27)
[2018-01-03 07:14] LABS: ADD MAN DIFF? NO
[2018-01-03 07:22] LABS: BASO % 0 % (0-3); EOS % 0 % (0-3); HEMATOCRIT 32.1 % (39.0-53.0); HEMOGLOBIN 10.7 g/dL (13.0-17.5); LYMPH % 12 % (24-48); MEAN CORPUSCULAR HEMOGLOBIN 30 pg (25-35); MEAN CORPUSCULAR HGB CONC 33 g/dL (31-37); MEAN CORPUSCULAR VOLUME 89 fL (79-100); MONO # 0.4 x10^3/uL (0.0-1.1); MONO % 5 % (0-9); NEUT # 6.5 x10^3uL (1.8-7.7); NEUT % 83 % (31-73); PLATELET COUNT 104 x10^3/uL (140-400); RED CELL DISTRIBUTION WIDTH 14.8 % (11.5-14.5); WHITE BLOOD COUNT 7.9 x10^3/uL (4.0-11.0)
[2018-01-03] MEDS: methylPREDNISolone SOD SUCC PF 40 MG/ML VIAL. IV ×2 (08:41→14:04)
[2018-01-03] MEDS: METOCLOPRAMIDE ORAL SOLN 10 MG/10 ML SOLUTION. FT ×4 (08:41→20:14)
[2018-01-03 08:43] LABS: POC GLUCOSE 179 mg/dL (70-99)
[2018-01-03] MEDS: FOLIC ACID 1 MG TABLET. PO (08:43)
[2018-01-03] MEDS: CETIRIZINE HCL 10 MG TABLET. PO (08:43)
[2018-01-03] MEDS: MULTIVITAMIN with MINERAL TABLET. PO (08:43)
[2018-01-03] MEDS: ASCORBIC ACID 500 MG TABLET PO (08:43)
[2018-01-03] MEDS: MAGNESIUM OXIDE 400 MG TABLET PO ×3 (08:43→20:14)
[2018-01-03] MEDS: CLOPIDOGREL BISULFATE 75 MG TABLET PO (08:43)
[2018-01-03] MEDS: buPROPion 100 MG TABLET PO ×2 (08:43→20:14)
[2018-01-03] MEDS: ASPIRIN ENTERIC COATED 81 MG TABLET.DR. PO (08:43)
[2018-01-03] MEDS: INSULIN ASPART 300 UNITS/3 ML INSULN.PEN SQ ×5 (08:51→22:26)
[2018-01-03] MEDS: VANCOMYCIN PER PHARMACY MC (14:18)
[2018-01-03 14:25] LABS: POC GLUCOSE 206 mg/dL (70-99)
[2018-01-03 16:21] LABS: POC GLUCOSE 247 mg/dL (70-99)
[2018-01-03] MEDS: ATORVASTATIN CALCIUM 20 MG TABLET PO (20:14)
[2018-01-03 22:19] LABS: POC GLUCOSE 243 mg/dL (70-99)
[2018-01-04] MEDS: VANCOMYCIN 1 GM in IV NORMAL SALINE 250ML 250 ML IV ×2 (01:20→12:25)
[2018-01-04] MEDS: PANTOPRAZOLE 40 MG TABLET.DR. PO (05:07)
[2018-01-04] MEDS: LEVOTHYROXINE 175 MCG TABLET PO (05:07)
[2018-01-04] MEDS: HEPARIN PF for SUB-Q USE 5,000 UNIT/0.5 ML VIAL. SQ ×3 (05:31→21:48)
[2018-01-04 05:38] LABS: POC GLUCOSE 100 mg/dL (70-99)
[2018-01-04 05:38] LABS: ADD MAN DIFF? NO
[2018-01-04] MEDS: INSULIN ASPART 300 UNITS/3 ML INSULN.PEN SQ ×4 (06:00→17:54)
[2018-01-04 06:29] LABS: BASO % 0 % (0-3); EOS % 0 % (0-3); HEMATOCRIT 32.1 % (39.0-53.0); HEMOGLOBIN 10.9 g/dL (13.0-17.5); LYMPH # 1.1 x10^3/uL (1.0-4.8); LYMPH % 16 % (24-48); MEAN CORPUSCULAR HEMOGLOBIN 31 pg (25-35); MEAN CORPUSCULAR HGB CONC 34 g/dL (31-37); MEAN CORPUSCULAR VOLUME 90 fL (79-100); MONO # 0.4 x10^3/uL (0.0-1.1); MONO % 5 % (0-9); NEUT # 5.5 x10^3uL (1.8-7.7); NEUT % 78 % (31-73); PLATELET COUNT 110 x10^3/uL (140-400); RED BLOOD COUNT 3.58 x10^6/uL (4.30-5.70); RED CELL DISTRIBUTION WIDTH 15.3 % (11.5-14.5); WHITE BLOOD COUNT 7.1 x10^3/uL (4.0-11.0)
[2018-01-04 06:37] LABS: ALBUMIN/GLOBULIN RATIO 0.6 (1.0-1.7); ALK PHOS 57 U/L (46-116); ALT (SGPT) 30 U/L (16-63); ANION GAP 3 (6-14); AST (SGOT) 19 U/L (15-37); BLOOD UREA NITROGEN 13 mg/dL (8-26); BUN/CREATININE RATIO 19 (6-20); CALCIUM 7.3 mg/dL (8.5-10.1); CARBON DIOXIDE 33 mmol/L (21-32); CHLORIDE 99 mmol/L (98-107); CREATININE 0.7 mg/dL (0.7-1.3); GFR 113.2; GLUCOSE 105 mg/dL (70-99); POTASSIUM 3.4 mmol/L (3.5-5.1); SODIUM 135 mmol/L (136-145); TOTAL BILIRUBIN 0.5 mg/dL (0.2-1.0); TOTAL PROTEIN 5.3 g/dL (6.4-8.2)
[2018-01-04] MEDS: IPRATRPIUM/ALBUTEROL 0.5/2.5MG 3 ML NEBU. NEB ×4 (08:03→19:19)
[2018-01-04] MEDS: ASPIRIN ENTERIC COATED 81 MG TABLET.DR. PO (08:57)
[2018-01-04] MEDS: buPROPion 100 MG TABLET PO ×2 (08:57→21:35)
[2018-01-04] MEDS: MAGNESIUM OXIDE 400 MG TABLET PO ×3 (08:58→21:36)
[2018-01-04] MEDS: MULTIVITAMIN with MINERAL TABLET. PO (08:58)
[2018-01-04] MEDS: CETIRIZINE HCL 10 MG TABLET. PO (08:58)
[2018-01-04] MEDS: METOCLOPRAMIDE ORAL SOLN 10 MG/10 ML SOLUTION. FT ×4 (08:58→21:36)
[2018-01-04] MEDS: CLOPIDOGREL BISULFATE 75 MG TABLET PO (08:59)
[2018-01-04] MEDS: ASCORBIC ACID 500 MG TABLET PO (08:59)
[2018-01-04] MEDS: FOLIC ACID 1 MG TABLET. PO (08:59)
[2018-01-04] MEDS: methylPREDNISolone SOD SUCC PF 40 MG/ML VIAL. IV ×2 (09:00→16:10)
[2018-01-04] MEDS: VANCOMYCIN PER PHARMACY MC ×2 (10:57→10:59)
[2018-01-04] MEDS: ATORVASTATIN CALCIUM 20 MG TABLET PO (21:35)
[2018-01-05] MEDS: INSULIN ASPART 300 UNITS/3 ML INSULN.PEN SQ ×4 (00:17→17:34)
[2018-01-05] MEDS: VANCOMYCIN 1 GM in IV NORMAL SALINE 250ML 250 ML IV ×2 (01:02→13:15)
[2018-01-05 06:06] LABS: POC GLUCOSE 237 mg/dL (70-99)
[2018-01-05 06:06] LABS: POC GLUCOSE 172 mg/dL (70-99)
[2018-01-05 06:06] LABS: POC GLUCOSE 110 mg/dL (70-99)
[2018-01-05 06:06] LABS: POC GLUCOSE 214 mg/dL (70-99)
[2018-01-05] MEDS: LEVOTHYROXINE 175 MCG TABLET PO (06:13)
[2018-01-05] MEDS: HEPARIN PF for SUB-Q USE 5,000 UNIT/0.5 ML VIAL. SQ ×3 (06:22→22:04)
[2018-01-05] MEDS: IPRATRPIUM/ALBUTEROL 0.5/2.5MG 3 ML NEBU. NEB ×4 (07:14→20:00)
[2018-01-05 08:02] LABS: POC GLUCOSE 190 mg/dL (70-99)
[2018-01-05] MEDS: METOCLOPRAMIDE ORAL SOLN 10 MG/10 ML SOLUTION. FT ×4 (08:36→21:45)
[2018-01-05] MEDS: CETIRIZINE HCL 10 MG TABLET. PO (08:37)
[2018-01-05] MEDS: MAGNESIUM OXIDE 400 MG TABLET PO ×3 (08:37→21:45)
[2018-01-05] MEDS: predniSONE 10 MG TABLET PEG (08:37)
[2018-01-05] MEDS: PANTOPRAZOLE 40 MG TABLET.DR. PO (08:37)
[2018-01-05] MEDS: FOLIC ACID 1 MG TABLET. PO (08:37)
[2018-01-05] MEDS: ASPIRIN ENTERIC COATED 81 MG TABLET.DR. PO (08:37)
[2018-01-05] MEDS: CLOPIDOGREL BISULFATE 75 MG TABLET PO (08:37)
[2018-01-05] MEDS: MULTIVITAMIN with MINERAL TABLET. PO (08:38)
[2018-01-05] MEDS: ASCORBIC ACID 500 MG TABLET PO (08:38)
[2018-01-05 10:21] LABS: ALBUMIN/GLOBULIN RATIO 0.6 (1.0-1.7); ALK PHOS 55 U/L (46-116); ALT (SGPT) 28 U/L (16-63); ANION GAP 3 (6-14); AST (SGOT) 18 U/L (15-37); BLOOD UREA NITROGEN 16 mg/dL (8-26); BUN/CREATININE RATIO 23 (6-20); CALCIUM 7.7 mg/dL (8.5-10.1); CARBON DIOXIDE 33 mmol/L (21-32); CHLORIDE 98 mmol/L (98-107); CREATININE 0.7 mg/dL (0.7-1.3); GFR 113.2; GLUCOSE 193 mg/dL (70-99); POTASSIUM 3.2 mmol/L (3.5-5.1); SODIUM 134 mmol/L (136-145); TOTAL BILIRUBIN 0.5 mg/dL (0.2-1.0); TOTAL PROTEIN 5.3 g/dL (6.4-8.2)
[2018-01-05] MEDS: VANCOMYCIN PER PHARMACY MC (11:15)
[2018-01-05 12:05] LABS: POC GLUCOSE 228 mg/dL (70-99)
[2018-01-05] MEDS: buPROPion 100 MG TABLET PO ×2 (13:13→21:45)
[2018-01-05] MEDS: POTASSIUM CHLORIDE 20MEQ 50 ML IV ×2 (15:30→17:24)
[2018-01-05 17:26] LABS: POC GLUCOSE 234 mg/dL (70-99)
[2018-01-05] MEDS: ATORVASTATIN CALCIUM 20 MG TABLET PO (21:45)
[2018-01-06 00:15] LABS: POC GLUCOSE 144 mg/dL (70-99)
[2018-01-06] MEDS: VANCOMYCIN 1 GM in IV NORMAL SALINE 250ML 250 ML IV ×2 (00:58→12:35)
[2018-01-06] MEDS: LEVOTHYROXINE 175 MCG TABLET PO (05:59)
[2018-01-06 06:00] LABS: POC GLUCOSE 159 mg/dL (70-99)
[2018-01-06] MEDS: INSULIN ASPART 300 UNITS/3 ML INSULN.PEN SQ ×3 (06:00→12:00)
[2018-01-06] MEDS: HEPARIN PF for SUB-Q USE 5,000 UNIT/0.5 ML VIAL. SQ (06:01)
[2018-01-06 06:32] LABS: ALBUMIN 1.9 g/dL (3.4-5.0); ALBUMIN/GLOBULIN RATIO 0.5 (1.0-1.7); ALK PHOS 65 U/L (46-116); ALT (SGPT) 26 U/L (16-63); ANION GAP 3 (6-14); AST (SGOT) 19 U/L (15-37); BLOOD UREA NITROGEN 17 mg/dL (8-26); BUN/CREATININE RATIO 24 (6-20); CALCIUM 8.1 mg/dL (8.5-10.1); CARBON DIOXIDE 31 mmol/L (21-32); CHLORIDE 99 mmol/L (98-107); CREATININE 0.7 mg/dL (0.7-1.3); GFR 113.2; GLUCOSE 161 mg/dL (70-99); SODIUM 133 mmol/L (136-145); TOTAL BILIRUBIN 0.5 mg/dL (0.2-1.0); TOTAL PROTEIN 5.4 g/dL (6.4-8.2)
[2018-01-06] MEDS: IPRATRPIUM/ALBUTEROL 0.5/2.5MG 3 ML NEBU. NEB ×2 (07:07→10:47)
[2018-01-06] MEDS: buPROPion 100 MG TABLET PO (08:53)
[2018-01-06] MEDS: MAGNESIUM OXIDE 400 MG TABLET PO (08:53)
[2018-01-06] MEDS: METOCLOPRAMIDE ORAL SOLN 10 MG/10 ML SOLUTION. FT ×2 (08:53→12:34)
[2018-01-06] MEDS: predniSONE 10 MG TABLET PEG (08:53)
[2018-01-06] MEDS: ASCORBIC ACID 500 MG TABLET PO (08:53)
[2018-01-06] MEDS: ASPIRIN ENTERIC COATED 81 MG TABLET.DR. PO (08:54)
[2018-01-06] MEDS: CLOPIDOGREL BISULFATE 75 MG TABLET PO (08:54)
[2018-01-06] MEDS: MULTIVITAMIN with MINERAL TABLET. PO (08:54)
[2018-01-06] MEDS: PANTOPRAZOLE 40 MG TABLET.DR. PO (08:54)
[2018-01-06] MEDS: FOLIC ACID 1 MG TABLET. PO (08:54)
[2018-01-06] MEDS: CETIRIZINE HCL 10 MG TABLET. PO (08:54)
[2018-01-06 12:26] LABS: POC GLUCOSE 273 mg/dL (70-99)
== END 2018-01-06 14:20 | DRG 871 ==
LOC: 4 NORTH 12-30 23:01 → ER 20:41 → 1 WEST ICU 22:45
PROC: 5A09357 Assistance with Respiratory Ventilation, Less than 24 Consecutive Hours, Continuous Positive Airway Pressure (ICD-10-PCS; principal; 2017-12-29)
PROC: 5A09357 Assistance with Respiratory Ventilation, Less than 24 Consecutive Hours, Continuous Positive Airway Pressure (ICD-10-PCS; 2017-12-29)
DX: A41.01 Sepsis due to Methicillin susceptible Staphylococcus aureus (principal); J15.6 Pneumonia due to other Gram-negative bacteria; J96.21 Acute and chronic respiratory failure with hypoxia; E43 Unspecified severe protein-calorie malnutrition; J69.0 Pneumonitis due to inhalation of food and vomit; I95.9 Hypotension, unspecified; G93.41 Metabolic encephalopathy; E87.1 Hypo-osmolality and hyponatremia; I69.351 Hemiplegia and hemiparesis following cerebral infarction affecting right dominant side; J44.1 Chronic obstructive pulmonary disease with (acute) exacerbation; I11.0 Hypertensive heart disease with heart failure; I50.9 Heart failure, unspecified; B19.20 Unspecified viral hepatitis C without hepatic coma; E03.9 Hypothyroidism, unspecified; E11.65 Type 2 diabetes mellitus with hyperglycemia; Z68.25 Body mass index [BMI] 25.0-25.9, adult; E78.00 Pure hypercholesterolemia, unspecified; E78.5 Hyperlipidemia, unspecified; F10.20 Alcohol dependence, uncomplicated; I25.10 Atherosclerotic heart disease of native coronary artery without angina pectoris; K21.9 Gastro-esophageal reflux disease without esophagitis; K74.60 Unspecified cirrhosis of liver; K80.20 Calculus of gallbladder without cholecystitis without obstruction; Z87.891 Personal history of nicotine dependence; Z95.1 Presence of aortocoronary bypass graft; Z95.5 Presence of coronary angioplasty implant and graft; Z99.81 Dependence on supplemental oxygen; E05.90 Thyrotoxicosis, unspecified without thyrotoxic crisis or storm; F32.9 Major depressive disorder, single episode, unspecified; J10.1 Influenza due to other identified influenza virus with other respiratory manifestations
CPT/HCPCS: 31720; 36415; 36569; 36600; 71045; 71275; 74018; 80048; 80053; 80074; 80202; 81001; 82553; 82805; 82962; 83605; 83735; 83880; 83930; 83935; 84300; 84439; 84443; 84484; 84550; 85025; 85379; 87040; 87086; 87205; 87641; 87804; 87804-59; 93005; 93306; 94640; 94660; 94760; 97161-GP; 97166-GO; 99291; 99291-25; J0692; J1815; J2060; J2920; J2930; J3370; J3480; J7030; J7040; J7050; J7512; J7620; J8597; Q9967

== ENCOUNTER → 2018-04-15 | Day surgery (SDC) | payer MEDICARE, OTHER ==
[~2018-04-15] MED LIST changes: -BARIUM SULFATE 60% 355 ML SUSP PO ONE; +LIDOCAINE 1% PF 2 ML VIAL. ID; +MORPHINE SULFATE 4 MG/ML DISP.SYRIN. IV; +ONDANSETRON PF 4 MG/2 ML VIAL. IV; +PROCHLORPERAZINE 10 MG/2 ML VIAL. IV; +PROPOFOL 20 ML IV; -SIMETHICONE/SOD BICARB/CITRIC ACID PACKET. PO ONE; +fentaNYL PF VIAL 100 MCG/2 ML VIAL IV
[2018-04-15] MEDS: IV RINGERS,LACTATED 1000ML 1,000 ML IV (07:00)
== END | disposition home or self-care (01) ==
LOC: ENDOS 10:53
DX: Z43.1 Encounter for attention to gastrostomy (principal); K21.9 Gastro-esophageal reflux disease without esophagitis; J44.9 Chronic obstructive pulmonary disease, unspecified; E78.00 Pure hypercholesterolemia, unspecified; I10 Essential (primary) hypertension; E11.9 Type 2 diabetes mellitus without complications; D64.9 Anemia, unspecified; Z79.82 Long term (current) use of aspirin; Z86.73 Personal history of transient ischemic attack (TIA), and cerebral infarction without residual deficits; I25.10 Atherosclerotic heart disease of native coronary artery without angina pectoris; Z98.61 Coronary angioplasty status; Z95.5 Presence of coronary angioplasty implant and graft; Z87.39 Personal history of other diseases of the musculoskeletal system and connective tissue; Z86.19 Personal history of other infectious and parasitic diseases; Z86.14 Personal history of Methicillin resistant Staphylococcus aureus infection; E03.9 Hypothyroidism, unspecified
CPT/HCPCS: 43247; J2704

== ENCOUNTER 2018-07-16 22:10 | Emergency (ER) | payer MEDICARE, OTHER ==
[~2018-07-16] VITALS: Ht 180.3 cm; Wt 96.6 kg
[~2018-07-16 22:10] MED LIST changes: +ASPI-482 PO; +ATOR20TA58 PO; +BISA10SU55 RC; +BUPR200T2 PO; +CLOP75TA PO; +FAMO20TA5 PO; +FOLI1TAB16 PO; +LEVO175T5 PO; +LEVO25TA4 PO; -LIDOCAINE 1% PF 2 ML VIAL. ID; +LISI-338 PO; +LORA10TA68 PO; +LOSA25TA4 PO; +MAG355OR11 PO; +MAGN400T17 PO; +METF500T5 PO; +MIRT15TA3 PO; -MORPHINE SULFATE 4 MG/ML DISP.SYRIN. IV; +MULT1TAB52 PO; +NA P133E2 RC; -ONDANSETRON PF 4 MG/2 ML VIAL. IV; +PANT40TA3 PO; +POLY17PO29 PO; +PRAV80TA2 PO; -PROCHLORPERAZINE 10 MG/2 ML VIAL. IV; -PROPOFOL 20 ML IV; +THIA100T8 PO; -fentaNYL PF VIAL 100 MCG/2 ML VIAL IV
[2018-07-16] MEDS ORDERED: ONDANSETRON PF 4 MG/2 ML VIAL. IV ONE (23:00)
--- NOTE | 2018-07-16 23:33 | RAD ---
PROCEDURE: PORTABLE CHEST 1V CLINICAL INDICATION: aspiration, pt is unresponsive COMPARISON: 01/01/2018 FINDINGS: No pneumothorax identified. Cardiac and mediastinal contours unremarkable. No pulmonary consolidation or acute airspace disease. No acute osseous abnormalities identified. CABG changes noted. IMPRESSION: No pulmonary consolidation or acute airspace disease. Electronically signed by: Thony Castañeda DO (07/16/2018 11:30 PM) [facility]
[2018-07-16 23:35] LABS: BASO % 0 % (0-3); EOS # 0.1 x10^3/uL (0.0-0.7); EOS % 1 % (0-3); HEMATOCRIT 37.7 % (39.0-53.0); HEMOGLOBIN 12.4 g/dL (13.0-17.5); LYMPH # 0.8 x10^3/uL (1.0-4.8); LYMPH % 11 % (24-48); MEAN CORPUSCULAR HEMOGLOBIN 27 pg (25-35); MEAN CORPUSCULAR HGB CONC 33 g/dL (31-37); MEAN CORPUSCULAR VOLUME 83 fL (79-100); MONO # 0.3 x10^3/uL (0.0-1.1); MONO % 5 % (0-9); NEUT # 5.7 x10^3uL (1.8-7.7); NEUT % 83 % (31-73); PLATELET COUNT 148 x10^3/uL (140-400); RED BLOOD COUNT 4.53 x10^6/uL (4.30-5.70); RED CELL DISTRIBUTION WIDTH 14.6 % (11.5-14.5); WHITE BLOOD COUNT 6.9 x10^3/uL (4.0-11.0)
[2018-07-16 23:42] LABS: CALCIUM 8.9 mg/dL (8.5-10.1)
--- NOTE | 2018-07-16 23:42 | PHYS DOC ---
Past Medical History Past Medical History: Anemia, COPD, CVA, Depression, Diabetes-Type II, GERD, High Cholesterol, Heart Disease, Hepatitis, Pneumonia Additional Past Medical Histor: FLU A, METABOLIC ENCEPH, HEP C Past Surgical History: Coronary Bypass Surgery Additional Past Surgical Histo: G TUBE Alcohol Use: None Drug Use: None Adult General Chief Complaint Chief Complaint: NAUSEA/VOMITING/DIARRHA HPI HPI Patient is a 67 year old male who was brought in by ambulance from the local long term facility. Apparently this patient has history of COPD and generalized debility previous CVA type 2 diabetes apparently has a history of aspiration he got out of bed and leaned over to close the curtain he was sitting on the pad on the floor he could not get up he had an episode of vomiting he said he ate beef tenderloin for dinner. Apparently he did have a history of a feeding tube in the past but not currently is able to take some food by mouth. Apparently he could not reach his call light but he could reach his cell phone so he called his daughter who called 911 because nobody was answering at the nursing facility. She is worried about aspiration wanted to be checked out for that. Review of Systems Review of Systems Limited by mental status Apparently at baseline patient is mildly confused he is currently at his baseline. E. Current Medications Current Medications Current Medications Medications (Trade) Dose Ordered Sig/Indra Start Time Stop Time Status Last Admin Dose Admin Ondansetron HCl (Zofran) 4 mg 1X ONCE 07/16/18 23:00 07/16/18 23:01 DC 07/16/18 00:00 4 MG Allergies Allergies Allergies Coded Allergies Type Severity Reaction Last Updated Verified I S O L A T I O N *CONTACT* Allergy Unknown 12/30/17 Yes No Known Medication Allergies Allergy Unknown 04/15/18 Yes Physical Exam Physical Exam Constitutional: Well developed, well nourished, no acute distress, non-toxic appearance. [] HENT: Normocephalic, atraumatic, bilateral external ears normal, oropharynx dry , no oral exudates, nose normal. [] Eyes: PERRLA, EOMI, conjunctiva normal, no discharge. [] Neck: Normal range of motion, no tenderness, supple, no stridor. [] Cardiovascular:Heart rate regular rhythm, no murmur [] Lungs & Thorax: Bilateral breath sounds clear to auscultation [] Abdomen: Bowel sounds normal, soft, SUPRAPUBIC tenderness, no masses, no pulsatile masses. [] Skin: Warm, dry, no erythema, no rash. [] Back: No tenderness, no CVA tenderness. [] Extremities: No tenderness, no cyanosis, no clubbing, ROM intact, no edema. [] Neurologic: Alert and oriented X 2, some mild CONTRACTURES b/l but this appears abaseline Psychologic: Affect normal, judgement normal, mood normal. [] Current Patient Data Vital Signs Vital Signs Date Time Temp Pulse Resp B/P (MAP) Pulse Ox O2 Delivery O2 Flow Rate FiO2 07/16/18 22:10 98.6 84 20 161/83 (109) 96 Room Air 98.6 Lab Values Laboratory Tests Test 07/16/18 23:05 07/17/18 01:03 White Blood Count 6.9 x10^3/uL (4.0-11.0) Red Blood Count 4.53 x10^6/uL (4.30-5.70) Hemoglobin 12.4 g/dL (13.0-17.5) L Hematocrit 37.7 % (39.0-53.0) L Mean Corpuscular Volume 83 fL (79-100) Mean Corpuscular Hemoglobin 27 pg (25-35) Mean Corpuscular Hemoglobin Concent 33 g/dL (31-37) Red Cell Distribution Width 14.6 % (11.5-14.5) H Platelet Count 148 x10^3/uL (140-400) Neutrophils (%) (Auto) 83 % (31-73) H Lymphocytes (%) (Auto) 11 % (24-48) L Monocytes (%) (Auto) 5 % (0-9) Eosinophils (%) (Auto) 1 % (0-3) Basophils (%) (Auto) 0 % (0-3) Neutrophils # (Auto) 5.7 x10^3uL (1.8-7.7) Lymphocytes # (Auto) 0.8 x10^3/uL (1.0-4.8) L Monocytes # (Auto) 0.3 x10^3/uL (0.0-1.1) Eosinophils # (Auto) 0.1 x10^3/uL (0.0-0.7) Basophils # (Auto) 0.0 x10^3/uL (0.0-0.2) Sodium Level 139 mmol/L (136-145) Potassium Level 4.0 mmol/L (3.5-5.1) Chloride Level 103 mmol/L (98-107) Carbon Dioxide Level 30 mmol/L (21-32) Anion Gap 6 (6-14) Blood Urea Nitrogen 21 mg/dL (8-26) Creatinine 1.0 mg/dL (0.7-1.3) Estimated GFR (Cockcroft-Gault) 75.0 BUN/Creatinine Ratio 21 (6-20) H Glucose Level 248 mg/dL (70-99) H Calcium Level 8.9 mg/dL (8.5-10.1) Total Bilirubin 0.2 mg/dL (0.2-1.0) Aspartate Amino Transferase (AST) 34 U/L (15-37) Alanine Aminotransferase (ALT) 43 U/L (16-63) Alkaline Phosphatase 105 U/L (46-116) Troponin I Quantitative < 0.017 ng/mL (0.000-0.055) Total Protein 6.8 g/dL (6.4-8.2) Albumin 3.5 g/dL (3.4-5.0) Albumin/Globulin Ratio 1.1 (1.0-1.7) Lipase 96 U/L (73-393) Urine Collection Type U cath Urine Color Yellow Urine Clarity Clear Urine pH 7.5 Urine Specific [place] 1.025 Urine Protein Negative mg/dL (NEG-TRACE) Urine Glucose (UA) 100 mg/dL (NEG) Urine Ketones (Stick) Negative mg/dL (NEG) Urine Blood Negative (NEG) Urine Nitrite Negative (NEG) Urine Bilirubin Negative (NEG) Urine Urobilinogen Dipstick 1.0 mg/dL (0.2 mg/dL) Urine Leukocyte Esterase Negative (NEG) Urine RBC Occ /HPF (0-2) Urine WBC Occ /HPF (0-4) Urine Squamous Epithelial Cells Occ /LPF Urine Bacteria 0 /HPF (0-FEW) Urine Hyaline Casts Occasional /HPF Urine Mucus Mod /LPF Laboratory Tests 07/16/18 23:05 Laboratory Tests 07/16/18 23:05 EKG EKG [] Interpretation Time: EKG shows a normal sinus rhythm rate of 84 no acute ischemic changes noted interpreted by me time of encounter. QTC 440. Radiology/Procedures Radiology/Procedures [] Impressions: cxr neg Course & Med Decision Making Course & Med Decision Making Pertinent Labs and Imaging studies reviewed. (See chart for details) 67-year-old male brought in by ambulance with the episode of vomiting a nursing facility. Patient is well-appearing here saturating well chest x-ray negative lungs essentially clear I do not think that he aspirated. I did advise the daughter that he be reevaluated for dietary considerations as he may have not been able to tolerate the beef that he had for dinner. His cover sheet from the nursing facility that I reviewed to see that he supposed to be on a pudding thick diet . We checked another basic lab work and everything is appearing fairly stable overall. Patient did have pudding in the ER without any difficulty at all No obvious evidence of aspiration clinically. Patient was unable to urinate in the emergency room we did do a straight catheter which revealed 900 mL coming out so we placed a Farrell catheter. Patient will need urology follow-up for this within 1 week. flomax rx, urology f/u number given d/w daughter the plan who is in agreement. Dragon Disclaimer Dragon Disclaimer This electronic medical record was generated, in whole or in part, using a voice recognition dictation system. Departure Departure Impression: Primary Impression: Urinary retention Disposition: 03 TRANSFER SNF Condition: STABLE Referrals: BRANDEN MATHEW MD (PCP) Scripts Tamsulosin Hcl (FLOMAX) 0.4 Mg Cap.er.24h 1 CAP PO DAILY, #15 CAP 11 Refills Prov: HÉCTOR GOYAL MD 07/17/18 HÉCTOR GOYAL MD Jul 16, 2018 23:42
[2018-07-16 23:47] LABS: ALBUMIN 3.5 g/dL (3.4-5.0); ALBUMIN/GLOBULIN RATIO 1.1 (1.0-1.7); TOTAL BILIRUBIN 0.2 mg/dL (0.2-1.0); TOTAL PROTEIN 6.8 g/dL (6.4-8.2)
[2018-07-17 01:19] LABS: BILIRUBIN,URINE NEGATIVE (NEG); CLARITY,URINE CLEAR; COLOR,URINE YELLOW; NITRITE,URINE NEGATIVE (NEG); PH,URINE 7.5; PROTEIN,URINE NEGATIVE (NEG-TRACE)
[2018-07-17 01:24] LABS: BACTERIA,URINE 0 /HPF (0-FEW); HYALINE CASTS, URINE OCCASIONAL /HPF; RBC,URINE OCC /HPF (0-2); SQUAMOUS EPITHELIAL CELL,UR OCC /LPF; WBC,URINE OCC /HPF (0-4)
[2018-07-17] MEDS ORDERED: TAMS0.4C97 PO (01:30)
[2018-07-17 02:30] VITALS: BP 136/89
--- NOTE | 2018-07-17 06:55 | EKG ---
[facility] [address] [place] [address] Test Date: 2018-07-16 Test Time: 23:23:23 Pat Name: LAURA SINCLAIR Department: Room: Gender: M Airway Controller: : 1950 Requested By: HÉCTOR GOYAL Order Number: [id number] Reading MD: Kyle Rodriguez MD Measurements Intervals [place] Rate: 83 P: -47 GA: 146 QRS: 16 QRSD: 92 T: 48 QT: 370 QTc: 440 Interpretive Statements SINUS RHYTHM LOW LIMB LEAD VOLTAGE NON SPECIFIC T ABNORMALITY Electronically Signed On 07-17-2018 7:23:55 CDT by Kyle Rodriguez MD
== END 2018-07-17 02:38 | disposition home or self-care (01) ==
LOC: ER 22:10
DX: R33.9 Retention of urine, unspecified (principal); R11.2 Nausea with vomiting, unspecified; R41.0 Disorientation, unspecified; J44.9 Chronic obstructive pulmonary disease, unspecified; E78.00 Pure hypercholesterolemia, unspecified; K21.9 Gastro-esophageal reflux disease without esophagitis; E11.9 Type 2 diabetes mellitus without complications; Z86.73 Personal history of transient ischemic attack (TIA), and cerebral infarction without residual deficits; Z86.79 Personal history of other diseases of the circulatory system; Z95.5 Presence of coronary angioplasty implant and graft; Z91.041 Radiographic dye allergy status
CPT/HCPCS: 36415; 51702; 71045; 80053; 81001; 83690; 84484; 85025; 93005; 96374; 99285; J2405